=== PATIENT | female | born 1960 | race Caucasian/White ===

== ENCOUNTER 2019-05-28 05:26 | Inpatient (IN) | payer BC, OTHER ==
[~2019-05-28 05:26] MED LIST: BUPIVACAINE 0.5% (SDV) 30 ML, morphine SULFATE (PF) 8 MG, EPINEPHrine 0.3 MG, KETOROLAC... IRR
[2019-05-28] MEDS: DEXAMETHASONE 1 MG TAB PO (06:23)
[2019-05-28] MEDS: GABAPENTIN 300 MG CAP PO ×2 (06:23→12:05)
[2019-05-28] MEDS ORDERED: ROCURONIUM 50 MG INJ (07:00)
[2019-05-28] MEDS ORDERED: FENTAnyl 50 MCG/ML VIAL (07:07)
[2019-05-28] MEDS ORDERED: MIDAZOLAM 1 MG/ML 2 ML INJ (07:07)
[2019-05-28] MEDS ORDERED: THROMBIN 5000 UNIT VIAL (07:46)
[2019-05-28] MEDS: POLYMYXIN/BACITRACIN 1L IRRIG (07:47)
[2019-05-28] MEDS ORDERED: CA CHLORIDE 10% 10 ML SYRINGE (07:47)
[2019-05-28] MEDS ORDERED: TRANEXAMIC ACID 1GM/100ML(PMX) 100 ML (07:52)
[2019-05-28] MEDS: CEFAZOLIN 2 GM/50 ML (PMX) 50 ML IVPB (08:00)
[2019-05-28] MEDS: TRANEXAMIC ACID 1GM/100ML(PMX) 100 ML IVPB (08:00)
[2019-05-28] MEDS ORDERED: METOCLOPRAMIDE 10 MG INJ (08:46)
[2019-05-28] MEDS ORDERED: ONDANSETRON 4 MG INJ (08:46)
[2019-05-28] MEDS ORDERED: LIDOCAINE 2% (SDV) 5 ML INJ (08:48)
[2019-05-28] MEDS ORDERED: CEFAZOLIN 1 GM INJ (08:48)
[2019-05-28] MEDS ORDERED: PROPOFOL 20 ML (08:48)
[2019-05-28] MEDS: LACTATED RINGER'S 1,000 ML IV ×2 (08:55→18:55)
[2019-05-28] MEDS ORDERED: MAGNESIUM HYDROXIDE 30ML CUP PO (09:00)
[2019-05-28] MEDS ORDERED: HYDROmorphONE 1 MG/ML SYG IV (09:00)
[2019-05-28] MEDS ORDERED: DIPHENHYDRAMINE 50 MG INJ IV ×2 (09:00→09:30)
[2019-05-28] MEDS ORDERED: ONDANSETRON 4 MG INJ IV ×2 (09:00→09:30)
[2019-05-28] MEDS ORDERED: NACL 0.9% 3 ML SYG IV (09:00)
[2019-05-28] MEDS ORDERED: ARMOUR PO (09:00)
[2019-05-28] MEDS ORDERED: ESTRADIOL 1 MG TAB PO (09:00)
[2019-05-28] MEDS ORDERED: oxyCODONE 5 MG TAB PO (09:00)
[2019-05-28] MEDS ORDERED: ZOLPIDEM 5 MG TAB PO (09:00)
[2019-05-28] MEDS ORDERED: METOCLOPRAMIDE 10 MG INJ IV (09:30)
[2019-05-28] MEDS ORDERED: MEPERIDINE 25 MG INJ IV (09:30)
[2019-05-28] MEDS ORDERED: FENTAnyl 50 MCG/ML VIAL IV (09:30)
[2019-05-28] MEDS ORDERED: HYDROmorphONE 1 MG/5 ML IV SYRINGE IV ×2 (09:30)
[2019-05-28 09:58] LABS: ADD MAN DIFF? NO
[2019-05-28] MEDS: CEFAZOLIN 1 GM/50 ML (PMX) 50 ML IVPB ×2 (10:12→16:42)
[2019-05-28 10:13] LABS: WHITE BLOOD COUNT 6.7 10^3/ul (4.8-10.8)
[2019-05-28 10:13] LABS: BASOPHILS % 0.6 % (0.0-2.0); EOSINOPHILS % 0.6 % (0.0-7.0); HEMATOCRIT 39.9 % (37.0-47.0); HEMOGLOBIN 13.1 g/dl (12.0-16.0); LYMPHOCYTES # 0.9 10^3/ul (0.8-2.9); LYMPHOCYTES % 13.1 % (15.0-51.0); MEAN CORPUSCULAR HEMOGLOBIN 32.4 pg (29.0-33.0); MEAN CORPUSCULAR HGB CONC 32.8 g/dl (32.0-37.0); MEAN CORPUSCULAR VOLUME 98.8 fl (82.0-101.0); MEAN PLATELET VOLUME 10.9 fl (7.4-10.4); MONOCYTE # 0.3 10^3/ul (0.3-0.9); MONOCYTES % 3.9 % (0.0-11.0); NEUTROPHIL # 5.4 10^3/ul (1.6-7.5); NEUTROPHILS % 81.2 % (39.0-77.0); PLATELET COUNT 197 10^3/UL (140-415); RED BLOOD COUNT 4.04 10^6/ul (4.20-5.40); RED CELL DISTRIBUTION WIDTH 12.6 % (11.5-14.5)
[2019-05-28] MEDS: ACETAMINOPHEN 1000MG/100ML IV 100 ML IVPB ×2 (10:13→16:18)
[2019-05-28] MEDS: SOD CHLORIDE 0.9% 100 ML, TRANEXAMIC ACID 3,000 MG IRR (11:35)
[2019-05-28] MEDS: valACYclovir 500 MG TAB PO (12:02)
[2019-05-28] MEDS: SENNA/DOCUSATE NA (8.6MG/50MG) TAB PO ×2 (12:04→21:23)
[2019-05-28] MEDS: DEXAMETHASONE 2 MG TAB PO ×2 (12:05→17:58)
[2019-05-28] MEDS: CELECOXIB 200 MG CAP PO (12:05)
[2019-05-28] MEDS: oxyCODONE 5 MG TAB PO ×3 (13:30→21:23)
[2019-05-28] MEDS ORDERED: NON-FORMULARY/PATIENT OWN MED (Progesterone,Micronized* (Progesterone*) 200 MG) PO (21:00)
[2019-05-28] MEDS: traZODone 50 MG TAB PO (21:23)
[2019-05-29] MEDS: CEFAZOLIN 1 GM/50 ML (PMX) 50 ML IVPB
[2019-05-29] MEDS: ACETAMINOPHEN 1000MG/100ML IV 100 ML IVPB ×2 (01:00→03:33)
[2019-05-29] MEDS: oxyCODONE 5 MG TAB PO ×3 (03:33→13:02)
[2019-05-29] MEDS: LACTATED RINGER'S 1,000 ML IV (04:55)
[2019-05-29 05:21] LABS: ADD MAN DIFF? NO
[2019-05-29 05:28] LABS: BASOPHILS % 0.2 % (0.0-2.0); EOSINOPHILS % 0.3 % (0.0-7.0); HEMATOCRIT 35.8 % (37.0-47.0); HEMOGLOBIN 12.1 g/dl (12.0-16.0); LYMPHOCYTES # 0.8 10^3/ul (0.8-2.9); LYMPHOCYTES % 8.5 % (15.0-51.0); MEAN CORPUSCULAR HEMOGLOBIN 32.7 pg (29.0-33.0); MEAN CORPUSCULAR HGB CONC 33.8 g/dl (32.0-37.0); MEAN CORPUSCULAR VOLUME 96.8 fl (82.0-101.0); MEAN PLATELET VOLUME 11.2 fl (7.4-10.4); MONOCYTE # 0.8 10^3/ul (0.3-0.9); MONOCYTES % 8.4 % (0.0-11.0); NEUTROPHIL # 7.3 10^3/ul (1.6-7.5); NEUTROPHILS % 81.9 % (39.0-77.0); PLATELET COUNT 183 10^3/UL (140-415); RED CELL DISTRIBUTION WIDTH 12.5 % (11.5-14.5)
[2019-05-29] MEDS: DEXAMETHASONE 2 MG TAB PO ×2 (05:35)
[2019-05-29] MEDS: valACYclovir 500 MG TAB PO (07:59)
[2019-05-29] MEDS: CELECOXIB 200 MG CAP PO (07:59)
[2019-05-29] MEDS: SENNA/DOCUSATE NA (8.6MG/50MG) TAB PO (07:59)
[2019-05-29] MEDS: GABAPENTIN 300 MG CAP PO (07:59)
[2019-05-29] MEDS: ASPIRIN (EC) 325 MG TAB PO (09:50)
[2019-05-29 15:01] LABS: ADD UMIC YES; UR ASCORBIC ACID NEGATIVE (NEGATIVE); UR BILIRUBIN (Dip) NEGATIVE (NEGATIVE); UR BLOOD (Dip) 2+ mg/dL (NEGATIVE); UR CLARITY CLEAR (CLEAR); UR COLOR STRAW (YELLOW); UR GLUCOSE (Dip) NEGATIVE (NEGATIVE); UR KETONES (Dip) NEGATIVE (NEGATIVE); UR LEUKOCYTE ESTERASE (Dip) NEGATIVE Leu/ul (NEGATIVE); UR NITRITE (Dip) NEGATIVE (NEGATIVE); UR RBC 2 /HPF (0-5); UR TOTAL PROTEIN (Dip) NEGATIVE (NEGATIVE); UR UROBILINOGEN (Dip) NEGATIVE (NEGATIVE); UR WBC 0 /HPF (0-5)
[2019-05-30] MEDS ORDERED: MAGNESIUM HYDROXIDE 30ML CUP PO (21:00)
[2019-05-31] MEDS ORDERED: ESTRADIOL 0.1 MG/24 HR PATCH TRANSDERM (18:00)
== END 2019-05-29 15:15 | disposition home or self-care (01) | DRG 470 ==
LOC: REC 05:26 → MS1 11:44
PROVIDERS: Orthopaedic Surgery
PROC: 0SR904A Replacement of Right Hip Joint with Ceramic on Polyethylene Synthetic Substitute, Uncemented, Open Approach (ICD-10-PCS; principal; 2019-05-28 07:00)
DX: M13.851 Other specified arthritis, right hip (principal); F41.9 Anxiety disorder, unspecified
CPT/HCPCS: 72170; 73530; 81001; 85025; 86999; 87086; 88304; 88311; 97116; 97161